=== PATIENT | female | born 1985 | race Caucasian/White ===

== ENCOUNTER → 2018-01-04 09:23 | Outpatient (REF) | payer OTHER, SELFPAY | LOC: LBN 09:23 | PROVIDERS: PCP Family Medicine; Visit Provider Advanced Practice Midwife | DX: Z34.83 Encounter for supervision of other normal pregnancy, third trimester (principal); Z36.85 Encounter for antenatal screening for Streptococcus B | CPT/HCPCS: 87081 ==

== ENCOUNTER → 2018-01-11 10:33 | Outpatient (REF) | payer OTHER, SELFPAY | LOC: LBN 10:33 | PROVIDERS: PCP Family Medicine; Visit Provider Midwife | DX: Z36.85 Encounter for antenatal screening for Streptococcus B (principal); Z34.83 Encounter for supervision of other normal pregnancy, third trimester | CPT/HCPCS: 87081 ==

== ENCOUNTER 2018-02-03 16:45 | Inpatient (IN) | payer OTHER, SELFPAY ==
[2018-02-03 20:12] LABS: HCT 36.9 % (36.0-46.0); HGB 12.7 g/dL (12.0-15.5); Mean Corp. HGB Concentration 34.4 g/dL (32.0-36.0); Mean Corpuscular Hemoglobin 33.1 pg (27.0-33.0); Mean Corpuscular Volume 96.1 fL (80-95); Mean Platelet Volume 11.4 fL (8.0-11.0); Platelet Count 182 x1000/uL (130-400); RBC 3.84 m/cumm (4.00-5.20); RBC Distribution Width 12.4 % (11.7-14.6); White Blood Cell Count 12.35 k/cumm (4.4-10.8)
[2018-02-04 07:02] LABS: HCT 35.6 % (36.0-46.0); HGB 12.2 g/dL (12.0-15.5); Mean Corp. HGB Concentration 34.3 g/dL (32.0-36.0); Mean Corpuscular Hemoglobin 33.1 pg (27.0-33.0); Mean Corpuscular Volume 96.5 fL (80-95); Mean Platelet Volume 11.2 fL (8.0-11.0); Platelet Count 163 x1000/uL (130-400); RBC 3.69 m/cumm (4.00-5.20); RBC Distribution Width 12.5 % (11.7-14.6)
== END 2018-02-04 19:30 | disposition home or self-care (01) | DRG 775 ==
PROVIDERS: Admitting Provider Advanced Practice Midwife; PCP Family Medicine; Visit Provider Advanced Practice Midwife
DX: O48.0 Post-term pregnancy (principal); Z37.0 Single live birth; Z3A.40 40 weeks gestation of pregnancy; O77.0 Labor and delivery complicated by meconium in amniotic fluid
CPT/HCPCS: 36415; 85027; 86850; 86900; 86901

== ENCOUNTER 2021-10-05 14:51 | Outpatient (REF) | payer OTHER, SELFPAY ==
--- NOTE | 2021-10-05 13:30 | PAPFT_PTH ---
PATIENT: Gabrielle Moeller LOC: [facility] U#:[id number] AGE/SX: 36/F ROOM: RE10/05/[address]: Brooke Ames CNM : 1985 BED: DIS: 10/05/2021 SPEC #: [id number] RECD: 10/05/21 17:39 STATUS: LB REQ #: [id number] OLIVER: 10/05/21 13:[address]: Brooke Ames DEPT: [facility] Cytology RECD BY: Morenita Santos ENTERED: 10/05/21 17:40 SP TYPE: PAPFT OTHR DR: Pierce Celaya Tissues: 1 - CX/ENDOCX FOR PAP SMEARS Procedures: PAP THIN PREP/UVM Screening HPV DNA PROBE Comments: [id number] (CHLAMYDIA/GC)
[2021-10-06 15:31] LABS: Chlamydia Result Negative (Negative); GC Result Negative (Negative)
== END 2021-10-05 14:52 | disposition home or self-care (01) ==
LOC: LBN 14:51
PROVIDERS: PCP Family Medicine; Visit Provider Advanced Practice Midwife
DX: Z11.3 Encounter for screening for infections with a predominantly sexual mode of transmission (principal); Z12.4 Encounter for screening for malignant neoplasm of cervix; Z11.51 Encounter for screening for human papillomavirus (HPV)
CPT/HCPCS: 87491; 87591; 88142; 87624

== ENCOUNTER 2022-03-15 03:26 | Outpatient (CLI) | payer BC, SELFPAY ==
[2022-03-15 18:41] LABS: HCG Quant, Pregnancy 619 mIU/mL (1-3)
== END 2022-03-15 03:27 | disposition home or self-care (01) ==
PROVIDERS: PCP Family Medicine
DX: Z32.00 Encounter for pregnancy test, result unknown (principal)
CPT/HCPCS: 36415; 84702; 84703

== ENCOUNTER 2022-03-20 03:25 | Outpatient (CLI) | payer BC, SELFPAY ==
[2022-03-20 17:43] LABS: HCG Quant, Pregnancy 4370 mIU/mL (1-3)
== END 2022-03-20 03:26 | disposition home or self-care (01) ==
DX: Z32.00 Encounter for pregnancy test, result unknown (principal)
CPT/HCPCS: 36415; 84702

== ENCOUNTER 2022-04-28 10:45 | Day surgery (SDC) | payer BC, SELFPAY ==
[2022-04-28 11:16] VITALS: BP 119/76; PULSE 61; RESP 16; TEMP 36.2; O2SAT 98
[2022-04-28 11:18] LABS: HCT 38.2 % (36.0-46.0); HGB 12.9 g/dL (11.2-15.7)
[2022-04-28] MEDS: Doxycycline Hyclate 100 MG CAP 200 MG PO (11:32)
[2022-04-28] MEDS: Acetaminophen 500 MG TAB 1000 MG PO (11:32)
[2022-04-28] MEDS: Ibuprofen 400 MG TAB PO (11:45)
[2022-04-28] MEDS: Lactated Ringers 1,000 ML 125 ML IV (12:00)
--- NOTE | 2022-04-28 12:53 | W.ANESPRE ---
General Info Date of Service Date Performed: 04/28/22 Height: 5 ft 4 in Weight: 66.6 kg Body Mass Index (BMI): 25.2 Surgical Procedure: Operation Date: 04/28/22 12:10 Proposed Procedure Side Surgeon p Suction Completion D&C Amaya Vaca MD Meds Allergies and Home Medications Allergies Allergy/AdvReac Type Severity Reaction Status Date / Time chlorhexadine AdvReac Skin Rash Uncoded 04/28/22 10:05 Home Medication Medication Instructions Recorded multivitamin 1 tab PO DAILY 10/05/21 [id number]-FA 1 mg tab PO 04/28/22 tablet PFSH Active Problems Active Problems: Problem Status Onset Code Encounter for procreative management and counseling for person acting as gestational surrogate Z31.7 resulting from in vitro fertilization O09.819 Missed with demise before 20 completed weeks of gestation O02.1 Medical History Medical History Active labor at term (10/21/14) Appendicitis, unqualified 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 is currently - no alcohol Substance Use Substance use: Never Substance use type: does not use Prental History History 4 Para 4 Hx # Term Pregnancies Multiple births Hx # Pregnancies Ectopic pregnancies AB induced Hx Number of Living Children AB spontaneous Past Pregnancies Del. Date GA/Weeks # Preg Succ Route Wgt Sex Labor Lgth Anesthesia Location Prov Complic 06/25/13 40 No vaginal 3175.147 g Female [facility] 10/22/14 40 No vaginal 3515.341 g Male [facility] 03/07/16 40 No vaginal 3373.593 g Female [facility] 02/03/18 40 No vaginal 3685.438 g Female [facility] Delivery Date: 06/25/13 Last Updated by: Chasity Javier Delivery Date: 10/22/14 Last Updated by: Chasity Mckinnon Delivery Date: 03/07/16 Last Updated by: Chasity Becker Delivery Date: 02/03/18 Last Updated by: Chasity Thurman Vital Signs and Lab Results Vital Signs Most Recent Vital Signs in EMR: Most Recent Vital Signs Temp Pulse Resp BP Pulse Ox 36.2 C L 61 16 119/76 98 04/28/22 11:16 04/28/22 11:16 04/28/22 11:16 04/28/22 11:16 04/28/22 11:16 Lab Results Result Diagrams: 04/28/22 11:13 Blood Type / Crossmatch: Patient ABO/Rh A Positive 04/28/22 Antibody Screen NEGATIVE 04/28/22 Complete Blood Count: Hemoglobin 12.9 g/dL (11.2-15.7) 04/28/22 11:13 Hematocrit 38.2 % (36.0-46.0) 04/28/22 11:13 Complete Metabolic Panel: No Data to Display Liver Function Panel: No Data to Display Coagulation Panel: No Data to Display Cardiac Panel: No Data to Display Arterial Blood Gas: No Data to Display Venous Blood Gas: No Data to Display Pancreas Panel: No Data to Display Thyroid Panel: No Data to Display Infectious Disease: No Data to Display Blood Cultures: No Data to Display Toxicology Panel: No Data to Display Panel: No Data to Display Anesthesia Assessment and Plan Anesthesia History Personal History: No History of Anesthesia Complications Family History: Other Exercise Tolerance Exercise Tolerance: Metabolic Equivalents>4 Pertinent Negatives Pertinent Negatives: No Symptoms of GERD, No Major Cardiovascular Symptoms or Complaints, No Major Pulmonary Symptoms or Complaints and No History of CVA/TIA Cardiac & Pulmonary Exam Cardiac Exam: Normal S1/S2 Heart Sounds Pulmonary Exam: Clear Bilateral Breath Sounds Implantable Cardiac Device Does patient have a Pacemaker or an ICD?: No Airway Exam Known Difficult Airway: No Mallampati Class: 3 Mouth Opening: Normal (> 3cm) Thyromental Distance: Greater than 3 cm Neck Range of Motion: Full ROM Neck Circumference: Normal Teeth Condition: Normal Dentition ASA Classification ASA Score: ASA 2 Emergency Case?: No NPO Status NPO Status: NPO Clears >2 hours, Solids >8 hours Status Status: Positive HCG Anesthesia Plan Resuscitation Status: Full Code Anesthesia Technique: General Anesthesia Airway Planned: Natural Airway Monitors Used: Standard Monitors
[2022-04-28 12:54] VITALS: BMI 25.2
--- NOTE | 2022-04-28 13:30 | POCSPONT_PTH ---
PATIENT: Gabrielle Moeller LOC: [facility] U#:[id number] AGE/SX: 37/F ROOM: RE04/28/[address]: Amaya Vaca MD : 1985 BED: DIS: 04/28/2022 SPEC #: [id number] RECD: 04/28/22 14:09 STATUS: LB REChanell #: [id number] OLIVER: 04/28/22 13:[address]: Amaya Vaca DEPT: Surgical Specimen RECD BY: Morenita Santos Tissues: 1 - ,SPONTANEOUS Procedures: GROSS AND MICRO LEVEL 3 Comments: [id number]
[2022-04-28 13:39] VITALS: BP 100/62; PULSE 69; RESP 16; TEMP 36.5; O2SAT 96
[2022-04-28 14:00] VITALS: BP 102/62; PULSE 67; RESP 16; TEMP 36.8; O2SAT 99
--- NOTE | 2022-04-28 14:28 | ROE_ITS ---
Date of service: 04/28/22 Time of Service: 13:30 Operative Note Operative Note DATE OF PROCEDURE: 04/28/22 PRE-OP DIAGNOSIS: missed POST-OP DIAGNOSIS: same PROCEDURE: Suction dilation and curettage SURGEON: Amaya Vaca Refer to Anesthesia Record COMPLICATIONS: None Patient was transported to: same day Patient's condition: stable Indications: 7wk MAB, originally twin Findings: Small uterus with products of conception evacuated. Minimal bleeding afterwards Procedure Description: After informed consent was signed the patient was taken to the operating room and given General room air anesthesia. SCDs were placed on her legs. She was prepped and draped in the dorsal lithotomy position in the [facility]. A time out was performed. Her bladder was drained of urine. Exam under anesthesia revealed normal external genitalia, vagina normal for age and a normal sized uterus. A speculum was placed into the vagina to reveal the cervix. The anterior lip of the cervix was grasped with a single tooth tenaculum. The cervix was dilated. The patient tolerated it well. The suction device was assembled and turned on. The uterine cavity was gently suctioned to remove the products of conception. There was a gritty texture in all four quadrants of the uterine cavity. There was minimal bleeding and the uterus was noted to be firm. The tenaculum was removed from the cervix with good hemostasis with silver nitrate. The speculum was removed from the vagina. The patient was placed back into the supine position. She was moved to the stretcher and taken to the recovery room in stable condition.
--- NOTE | 2022-04-28 14:28 | W.PM.DSUDISC ---
Date of service: 04/28/22 Time of Service: 13:30 Discharge Plan Disposition Patient Disposition: Home Condition: Good Discharge Details Attending Provider: Amaya Vaca Home Meds and New Rx's Prescriptions: No Action multivitamin Tablet 1 tab PO DAILY 1 mg Tablet PO Discharge Instructions Stand Alone Forms: Anesthesia Discharge Inst., DSU Post D&C Miscarriage, DSU Post BUILD AND RELEASE MANAGER Surgery, Bishnu Roper (DSU) Activity:: Activity as Tolerated Diet:: As Tolerated Discharge Orders Discharge Orders: Discharge Order (Routine); Ordered 04/28/22 Ordered By: Amaya Vaca DS: Diagnosis Discharge Diagnosis (1) Missed with demise before 20 completed weeks of gestation: Status: Acute
--- NOTE | 2022-04-28 15:42 | W.ANESPOSTOP ---
Postoperative Evaluation Date, Time and Location Date Performed: 04/28/22 Time Performed: 15:42 Patient Location: Day Surgery Unit Vital Signs Most Recent Imported Vital Signs: Most Recent Vital Signs Temp Pulse Resp BP Pulse Ox 36.8 C 67 16 102/62 99 04/28/22 14:00 04/28/22 14:00 04/28/22 14:00 04/28/22 14:00 04/28/22 14:00 Pain Score Most Recent Pain Score: Most Recent Pain Score Pain Level 0 04/28/22 13:39 Assessment Mental Status: Awake (Alert & Oriented to Patient Baseline) Airway and Respiratory Function: Patent airway with normal (patient baseline) respiratory exam Cardiovascular Function: Hemodynamically Stable Hydration Status: Adequately Hydrated Nausea & Vomiting: No Nausea or Vomiting Pain: Pt. Denies Any Pain Peripheral Nerve Block: Patient did not receive a nerve block Postoperative Comments:: Ms. Moeller was seen by Pierce Anguiano CRNA prior to discharge s
== END 2022-04-28 14:55 | disposition home or self-care (01) ==
PROVIDERS: Visit Provider Obstetrics & Gynecology
PROC: (CPT 59841; principal; 2022-04-28 12:00)
DX: O02.1 Missed abortion (principal); Z3A.01 Less than 8 weeks gestation of pregnancy; Z33.3 Pregnant state, gestational carrier
CPT/HCPCS: 59820; 36415; 86850; 86900; 86901; 88305; 85014; 85018; 88304; J1100; J2405; J3010

== ENCOUNTER 2022-08-16 01:59 | Outpatient (CLI) | payer BC, SELFPAY ==
[2022-08-16 16:17] LABS: HCG Quant, Pregnancy 493 mIU/mL (1-3)
== END 2022-08-16 02:00 | disposition home or self-care (01) ==
DX: Z32.00 Encounter for pregnancy test, result unknown (principal)
CPT/HCPCS: 36415; 84702

== ENCOUNTER 2022-08-21 03:30 | Outpatient (CLI) | payer BC, SELFPAY ==
[2022-08-21 12:16] LABS: HCG Quant, Pregnancy 5967 mIU/mL (1-3)
== END 2022-08-21 03:31 | disposition home or self-care (01) ==
PROVIDERS: Visit Provider Obstetrics & Gynecology Reproductive Endocrinology
DX: O09.01 Supervision of pregnancy with history of infertility, first trimester (principal); Z3A.00 Weeks of gestation of pregnancy not specified
CPT/HCPCS: 36415; 84702

== ENCOUNTER 2022-10-02 03:04 | Outpatient (CLI) | payer BC, SELFPAY ==
[2022-10-02 16:36] LABS: Abs Immature Grans 0.03 10^3/uL (0.0-0.06); Absolute Basophil Count 0.03 10^3/uL (0.0-0.2); Absolute Eosinophil Count 0.12 10^3/uL (0.0-0.7); Absolute Neutrophil Count 6.96 10^3/uL (1.2-6.7); Basophils % 0.3; Eosinophils % 1.2; HCT 36.9 % (36.0-46.0); HGB 12.7 g/dL (11.2-15.7); Immature Grans % 0.3; Lymphocytes % 22.9; MCH 32.2 pg (27.0-33.0); MCHC 34.4 % (32.0-36.0); MCV 93 fL (80-95); MPV 9.4 fL (8.0-11.0); Neutrophils % 69.3; Platelet Count 277 10^3/uL (130-400); RBC 3.95 10^6/uL (3.93-5.22); RDW 12.1 % (11.7-14.6); RDW-SD 41.7 fL; WBC 10.04 10^3/uL (4.4-10.8)
[2022-10-02 17:45] LABS: TSH (W/Ref FT4) 1.42 uIU/mL (0.36-3.74)
[2022-10-04 09:12] LABS: Hepatitis B Surface Ag Negative (Negative)
[2022-10-04 09:37] LABS: Hepatitis C Ab w Rflx HCV PCR Negative (Negative)
[2022-10-04 10:09] LABS: HIV-1/2 Ag & Ab Screen Negative (Negative)
[2022-10-04 11:23] LABS: Varicella IgG Antibody Positive (See Note)
[2022-10-04 11:26] LABS: Rubella IgG Ab (UVM) Positive (See Note)
[2022-10-04 22:13] LABS: Syphilis IgG w/Reflex Nonreactive (Nonreactive)
== END 2022-10-02 03:05 | disposition home or self-care (01) ==
LOC: LBO 03:04
PROVIDERS: Visit Provider Advanced Practice Midwife
DX: Z34.91 Encounter for supervision of normal pregnancy, unspecified, first trimester (principal); Z3A.10 10 weeks gestation of pregnancy
CPT/HCPCS: 36415; 86787; 86803; 86850; 86900; 86901; 87340; 87389; 84443; 85025; 86762; 86780

== ENCOUNTER 2022-10-02 16:27 | Outpatient (REF) | payer BC, SELFPAY ==
[2022-10-02 17:22] LABS: *AMPHETAMINES SCREEN URINE Negative (Negative); *BARBITURATES SCREEN URINE Negative (Negative); *BENZODIAZEPINES SCREEN URINE Negative (Negative); Cannabinoids THC Negative (Negative); Cocaine Screen,Urine Negative (Negative); METHADONE URINE SCREEN Negative (Negative); OPIATES URINE SCREEN Negative (Negative)
[2022-10-02 17:35] LABS: Tricyclic Antidepressants Negative (Negative)
[2022-10-08 00:25] LABS: Buprenorphine Negative ng/mL (Cutoff: 5.0); Norbuprenorphine Negative ng/mL (Cutoff: 2.5)
== END 2022-10-02 16:28 | disposition home or self-care (01) ==
LOC: LBN 16:27
PROVIDERS: Visit Provider Advanced Practice Midwife
DX: O09.811 Supervision of pregnancy resulting from assisted reproductive technology, first trimester (principal); Z3A.10 10 weeks gestation of pregnancy
CPT/HCPCS: 80307; 80348; 87086

== ENCOUNTER → 2023-01-24 01:51 | Outpatient (CLI) | payer BC, SELFPAY ==
--- NOTE | 2023-01-24 07:45 | DI.US_ITS ---
Exam(s) US OB DILLAN WEIGHT EXAM: US OB DILLAN WEIGHT (TWIN GESTATION) CLINICAL HISTORY: growth,F/U LOW LYING PLACENTA,o44.42. TECHNIQUE: Transabdominal obstetrical ultrasound was performed. COMPARISON: US US OB 2-3 TRIMESTER TWINS from 11/27/2022 FINDINGS: There is viable twin gestation FETUS A: FHR = 144 BPM Amniotic fluid: There is a normal amount of amniotic fluid with an DILLAN of 19.1cm. Placental location: The placenta is posterior grade 1. The distance between the tip of the placenta to the internal cervical os is 1 point 8 cm on today's study. Dating parameters place this station at approximately 28 WEEKS AND 2 DAYS gestational age, implying E DD of 04/16/2023. BPD measures 26 weeks and 5 days HC measures 27 weeks and 3 days AC measures 29 weeks and 0 days FL measures 29 weeks and 5 days Estimated weight is 1302 gm- Fetus A is at the 95th percentile on the Hadlock scale. FETUS B: FHR = 150 BPM Amniotic fluid: There is normal amount of amniotic fluid with DILLAN of 19.4 cm Placenta is posterior grade 1. Distance from tip of placenta to the internal cervical os is 5.8 cm [address] this gestation at approximately 27 weeks and 4 days, implying MELO of 023. BPD measures 27 weeks and 2 days HC measures 27 weeks and 1 day AC measures 27 weeks and 4 days FL measures 28 weeks and 2 days Estimated weight is 1120 grams Fetus is at the 63rd percentile on the Hadlock scale. IMPRESSION:: Viable twin gestation, with details as described above. DATA REPOSITORY:
== END ==
PROVIDERS: Visit Provider Advanced Practice Midwife
DX: O44.42 Low lying placenta NOS or without hemorrhage, second trimester (principal); Z3A.27 27 weeks gestation of pregnancy
CPT/HCPCS: 76816

== ENCOUNTER 2023-01-24 04:04 | Outpatient (CLI) | payer BC, SELFPAY ==
[2023-01-24 09:58] LABS: HCT 31.9 % (36.0-46.0); HGB 10.8 g/dL (11.2-15.7); MCH 32.4 pg (27.0-33.0); MCHC 33.9 % (32.0-36.0); MCV 96 fL (80-95); MPV 10.1 fL (8.0-11.0); Platelet Count 202 10^3/uL (130-400); RBC 3.33 10^6/uL (3.93-5.22); RDW 12.3 % (11.7-14.6); RDW-SD 42.8 fL; WBC 10.63 10^3/uL (4.4-10.8)
[2023-01-24 09:59] LABS: Glucose,1 Hr (Glucola) 125 mg/dL (80-140)
== END 2023-01-24 04:05 | disposition home or self-care (01) ==
LOC: LBO 04:04
PROVIDERS: Visit Provider Advanced Practice Midwife
DX: Z34.92 Encounter for supervision of normal pregnancy, unspecified, second trimester (principal); Z3A.27 27 weeks gestation of pregnancy
CPT/HCPCS: 36415; 82950; 85027

== ENCOUNTER 2023-03-16 16:02 | Outpatient (REF) | payer BC, SELFPAY | END 2023-03-16 16:03 | disposition home or self-care (01) | LOC: LBN 16:02 | PROVIDERS: Visit Provider Obstetrics & Gynecology | DX: Z34.93 Encounter for supervision of normal pregnancy, unspecified, third trimester (principal) | CPT/HCPCS: 87081 ==

== ENCOUNTER 2023-03-23 06:25 | Outpatient (CLI) | payer BC, SELFPAY ==
[2023-03-23 08:58] VITALS: BP 109/69; PULSE 105; TEMP 36.7
[2023-03-23 09:33] VITALS: BP 109/69; PULSE 105
== END 2023-03-23 09:55 ==
LOC: BCD 06:28 → OBS 08:57
PROVIDERS: Visit Provider Obstetrics & Gynecology Gynecology
DX: Z33.3 Pregnant state, gestational carrier (principal); O09.813 Supervision of pregnancy resulting from assisted reproductive technology, third trimester; Z3A.35 35 weeks gestation of pregnancy
CPT/HCPCS: 59025

== ENCOUNTER 2023-03-30 07:32 | Outpatient (CLI) | payer BC, SELFPAY ==
[2023-03-30 08:44] VITALS: TEMP 36.6
--- NOTE | 2023-03-30 09:01 | W.OBNST ---
Date of service: 03/30/23 Time of Service: 09:01 NST Evaluation Reason for NST Reasons for Nonstress Test: MULTIPLE GESTATION Gestational Age Gestational Age in Weeks and Days: 36 Weeks and 3Days Test and Monitor Explained Test/Monitor Explained: Test Explained, Monitor Explained and Patient Verbalized Understanding Vital Signs Temperature: 97.9 F NST Information Date on Monitor: 03/30/23 Time on Monitor: 08:30 NST Interventions: PO Hydration NST Evaluation Patient States Movement: Present FHR Baseline: 140 Variability: Moderate 6-25 bpm Accelerations: 15x15 Decelerations: None NST Results: Reactive NST Evaluation Baby B Patient States Movement: Present FHR Baseline: 130 Variability: Moderate 6-25 bpm Accelerations: 15x15 Decelerations: None NST Results: Reactive Note Ultrasound Done: N/A. NST Note Note: Twin NST, baby A, and be category 1 reactive nonstress test. No significant uterine activity. Follow-up in 1 week. All questions answered. NST Reviewed and Verified by: Batool Clancy
[2023-03-30 09:02] VITALS: TEMP 36.6
== END 2023-03-30 08:55 | disposition home or self-care (01) ==
LOC: BCD 07:36 → OBS 08:43
PROVIDERS: Visit Provider Obstetrics & Gynecology
DX: O09.813 Supervision of pregnancy resulting from assisted reproductive technology, third trimester (principal); Z33.3 Pregnant state, gestational carrier; Z3A.36 36 weeks gestation of pregnancy
CPT/HCPCS: 59025

== ENCOUNTER 2023-04-06 04:42 | Outpatient (CLI) | payer BC, SELFPAY ==
[2023-04-06 11:49] VITALS: BP 115/75; PULSE 98
[2023-04-06 12:09] VITALS: BP 115/75; PULSE 98; TEMP 36.5
--- NOTE | 2023-04-06 12:39 | W.OBNST ---
Date of service: 04/06/23 Time of Service: 12:00 NST Evaluation Reason for NST Reasons for Nonstress Test: MULTIPLE GESTATION Gestational Age Gestational Age in Weeks and Days: 37 Weeks and 3Days Test and Monitor Explained Test/Monitor Explained: Test Explained, Monitor Explained and Patient Verbalized Understanding Vital Signs Blood Pressure: 115/75 Pulse: 98 Temperature: 97.7 F Urine Results Urine Protein: Negative Urine Ketones: Positive Urine Glucose: Negative Urine Blood: Negative NST Information Date on Monitor: 04/06/23 Time on Monitor: 11:42 Date off Monitor: 04/06/23 Time off Monitor: 12:05 Total Time on Monitor: 23 NST Interventions: PO Hydration NST Evaluation Patient States Movement: Present FHR Baseline: 135 Variability: Moderate 6-25 bpm Accelerations: 15x15 Decelerations: None NST Results: Reactive NST Evaluation Baby B Patient States Movement: Present FHR Baseline: 125 Variability: Moderate 6-25 bpm Accelerations: 15x15 Decelerations: None NST Results: Reactive Note Ultrasound Done: N/A. NST Note Note: see record NST Reviewed and Verified by: Amaya Vaca
[2023-04-06 12:41] VITALS: BP 115/75; PULSE 98; TEMP 36.5
== END 2023-04-06 12:35 | disposition home or self-care (01) ==
LOC: BCD 04:45 → OBS 11:48
PROVIDERS: Visit Provider Obstetrics & Gynecology Gynecology
DX: O09.813 Supervision of pregnancy resulting from assisted reproductive technology, third trimester (principal); Z33.3 Pregnant state, gestational carrier; Z3A.37 37 weeks gestation of pregnancy
CPT/HCPCS: 59025

== ENCOUNTER 2023-04-10 03:20 | Outpatient (CLI) | payer BC, SELFPAY ==
[2023-04-10 14:29] LABS: HCT 35.7 % (36.0-46.0); HGB 12.2 g/dL (11.2-15.7); MCH 31.9 pg (27.0-33.0); MCHC 34.2 % (32.0-36.0); MCV 94 fL (80-95); MPV 11.1 fL (8.0-11.0); Platelet Count 181 10^3/uL (130-400); RBC 3.82 10^6/uL (3.93-5.22); RDW 13.2 % (11.7-14.6); RDW-SD 45.1 fL; WBC 9.94 10^3/uL (4.4-10.8)
== END 2023-04-10 03:21 | disposition home or self-care (01) ==
LOC: LBO 03:20
PROVIDERS: Visit Provider Obstetrics & Gynecology Gynecology
DX: Z01.818 Encounter for other preprocedural examination (principal)
CPT/HCPCS: 36415; 85027; 86850; 86900; 86901

== ENCOUNTER 2023-04-11 09:05 | Inpatient (IN) | payer BC, SELFPAY ==
--- NOTE | 2023-04-10 17:35 | W.ANESPRE ---
General Info Date of Service Date Performed: 04/11/23 Height: 5 ft 4 in Weight: 88 kg Body Mass Index (BMI): 33.3 Surgical Procedure: Operation Date: 04/11/23 07:40 Proposed Procedure Side Surgeon p Elective Primary Section Yari Lopez MD Meds Allergies and Home Medications Allergies Allergy/AdvReac Type Severity Reaction Status Date / Time chlorhexadine AdvReac Skin Rash Uncoded 04/10/23 13:10 Home Medication Medication Instructions Recorded aspirin 81 mg tablet,delayed 81 mg PO DAILY #90 tabs 10/02/22 release cholecalciferol (vitamin D3) 25 25 mcg PO DAILY 10/02/22 mcg (1,000 unit) tablet prenat.vits,yifan,klq-ywzm-rgiek 1 tab PO DAILY 10/19/22 ferrous sulfate 140 mg (45 mg 140 mg PO DAILY 02/05/23 iron) tablet,extended release PFSH Active Problems Active Problems: Problem Status Onset Code Discordant growth in twin gestation O30.009, O36.5990 Low lying placenta nos or without hemorrhage, second trimester O44.42 state, gestational carrier Z33.3 Dichorionic diamniotic twin O30.049 Twin gestation in first trimester O30.001 Subchorionic hematoma in first trimester O41.8X10, O46.8X1 conceived through in vitro fertilization O09.819 Z34.90 Medical History Medical History (Updated 04/10/23 @ 19:33 by Yari Lopez MD) History of miscarriage Medical History Comments:: younger sister had PONV Surgical History Surgical History (Updated 04/28/22 @ 14:49 by Amaya Vaca MD) H/O dilation and curettage 04/28/22 7wk MAB twins wisdom teeth extraction Appendectomy (08/22/16) laparoscopic Tobacco Smoking/Tobacco Use Status: Never Alcohol Alcohol Intake: former Details: pt. is currently - no alcohol Substance Use Substance use: Never Substance use type: does not use Prental History History 6 Para 4 Hx # Term Pregnancies 4 Multiple births 0 Hx # Pregnancies 0 Ectopic pregnancies 0 AB induced 0 Hx Number of Living Children 4 AB spontaneous 1 Past Pregnancies Del. Date GA/Weeks # Preg Succ Route Wgt Sex Labor Lgth Anesthesia Location Prov Complic 06/25/13 40 No vaginal 3175.147 g Female [facility] 10/22/14 40 No vaginal 3515.341 g Male [facility] 03/07/16 40 No vaginal 3373.593 g Female [facility] 02/03/18 40 No vaginal 3685.438 g Female [facility] Delivery Date: 06/25/13 Last Updated by: Chasity Javier Delivery Date: 10/22/14 Last Updated by: Chasity Mckinnon Delivery Date: 03/07/16 Last Updated by: Chasity Moy Delivery Date: 02/03/18 Last Updated by: Chasity Thurman Vital Signs and Lab Results Vital Signs Most Recent Vital Signs in EMR: Temp Pulse Resp BP Pulse Ox 36.8 C 111 H 20 109/74 97 04/11/23 06:55 04/11/23 06:58 04/11/23 06:55 04/11/23 06:55 04/11/23 06:55 Lab Results Blood Type / Crossmatch: Patient ABO/Rh A Positive 04/10/23 Antibody Screen NEGATIVE 04/10/23 Complete Blood Count: White Blood Count 9.94 10^3/uL (4.4-10.8) 04/10/23 13:55 Red Blood Count 3.82 10^6/uL (3.93-5.22) L 04/10/23 13:55 Hemoglobin 12.2 g/dL (11.2-15.7) 04/10/23 13:55 Hematocrit 35.7 % (36.0-46.0) L 04/10/23 13:55 Platelet Count 181 10^3/uL (130-400) 04/10/23 13:55 Complete Metabolic Panel: No Data to Display Liver Function Panel: No Data to Display Coagulation Panel: No Data to Display Cardiac Panel: No Data to Display Arterial Blood Gas: No Data to Display Venous Blood Gas: No Data to Display Pancreas Panel: No Data to Display Thyroid Panel: No Data to Display Infectious Disease: No Data to Display Blood Cultures: No Data to Display Toxicology Panel: No Data to Display Panel: No Data to Display Anesthesia Assessment and Plan Anesthesia History Personal History: No History of Anesthesia Complications Family History: Other Exercise Tolerance Exercise Tolerance: Metabolic Equivalents>4 Cardiac & Pulmonary Exam Cardiac Exam: Normal S1/S2 Heart Sounds Pulmonary Exam: Clear Bilateral Breath Sounds Implantable Cardiac Device Does patient have a Pacemaker or an ICD?: No Airway Exam Known Difficult Airway: No Mallampati Class: 3 Mouth Opening: Normal (> 3cm) Thyromental Distance: Greater than 3 cm Neck Range of Motion: Full ROM Neck Circumference: Normal Teeth Condition: Normal Dentition ASA Classification ASA Score: ASA 2 Emergency Case?: No NPO Status NPO Status: NPO Clears >2 hours, Solids >8 hours Status Status: Confirmed Anesthesia Plan Resuscitation Status: Full Code Anesthesia Technique: Spinal Anesthesia Airway Planned: Natural Airway Pain Management: Intrathecal Analgesia Monitors Used: Standard Monitors Preoperative Comments:: 38 yo female with a chlorhexidine allergy, surrogate with di-di twins for c section. Has had recent rib pain which has been causing her much discomfort. She is not opposed to sedation/anxiolysis during her section (this was discussed with her at length on 03/16/23 and she understands the amnesia that can/will occur. Sig PMHx: no major. No HTN, no asthma. Previous Anes: - d/c, Prop, fent, natural airway, no issues. - lap taty hernadez 2 grade 1, easy mask, no issues. Plan for spinal with IT opioid, +/- 2nd IV, would like anxiolysis.
[2023-04-11] VITALS (158 sets, daily range): BP systolic 95–118; BP diastolic 55–82; PULSE 54–111; RESP 12–20; TEMP 34.9–36.8; O2SAT 97–100; BMI 33.3
[2023-04-11] MEDS: Lactated Ringers 1,000 ML 125 ML IV (06:41)
[2023-04-11] MEDS: AZITHROMYCIN 500 MG in Normal Saline 250 ML 250 MG IVPB (06:43)
[2023-04-11] MEDS: Lactated Ringers 1,000 ML 30 ML IV ×2 (07:47→08:44)
[2023-04-11] MEDS: ceFAZolin 2 GM/50 ML BAG IV (08:00)
[2023-04-11 08:13] LABS: COVID-19 PCR Negative (Negative); Source Nasal/Nares
[2023-04-11] MEDS: Bupivacaine 0.25% Pres-Free 30 ML VIAL (08:45)
--- NOTE | 2023-04-11 09:20 | W.ANESPOSTOP ---
Postoperative Evaluation Date, Time and Location Date Performed: 04/11/23 Time Performed: 09:20 Patient Location: Obstetrics Vital Signs Most Recent Imported Vital Signs: Most Recent Vital Signs Temp Pulse Resp BP Pulse Ox 36.8 C 89 20 101/58 L 98 04/11/23 06:55 04/11/23 09:18 04/11/23 06:55 04/11/23 09:08 04/11/23 09:18 Pain Score Most Recent Pain Score: Most Recent Pain Score Pain Level 0 04/11/23 06:55 Assessment Mental Status: Awake (Alert & Oriented to Patient Baseline) Airway and Respiratory Function: Patent airway with normal (patient baseline) respiratory exam Cardiovascular Function: Hemodynamically Stable Hydration Status: Adequately Hydrated Nausea & Vomiting: No Nausea or Vomiting Pain: Other (spinal still in effect. ) Peripheral Nerve Block: Patient did not receive a nerve block
[2023-04-11] MEDS: Ketorolac 30 MG/ML VIAL IVP ×2 (14:09→20:07)
[2023-04-11] MEDS: Normal Saline Flush 10 ML SYR IVP ×2 (14:10→20:07)
[2023-04-11] MEDS: Docusate Sodium 100 MG CAP PO (20:07)
--- NOTE | 2023-04-11 23:04 | W.PM.OBPNV1 ---
Date of service: 04/11/23 Time of Service: 23:04 Assessment and Plan Assessment and plan (1) Hx of section: Status: Acute Assessment and plan: POD 0. Serous sanguinous drainage from Pfannenstiel skin incision. No active bleeding noted when dressing removed. New dressing applied. Will continue to observe drainage. Subjective Subjective Interval history: POD 0 pLTCS twin gestation @38w1d EGA. Pt had 3cm of R lateral margin staining on dressing over Pfannestiel skin incision at 15:00 today. Abd soft and non-tender, FF@U/1. No pain. RN caring for pt this evening reported that dressing was now completely stained with blood. None running from below Mepilex dressing. I came to inspect incision. Patient comments: No complaints, Pain well controlled and Tolerating diet; no Incisional pain [place] baby status: Other (Infants rooming with biological fathers.) [place] feeding status: Exclusively formula feeding Exam Physical Exam Vital signs: Temp Pulse Resp BP Pulse Ox 97.5 F L 63 17 118/74 99 04/11/23 20:23 04/11/23 20:23 04/11/23 21:00 04/11/23 20:23 04/11/23 20:23 Vital Signs Reviewed: Yes Constitutional Constitutional: no acute distress Respiratory Exam Respiratory Exam: Normal Cardiovascular Exam Cardiovascular Exam: Normal (pulse sinus rhythm ) Abdominal Exam Comments: Soft non-tender. No distention. Mepilex dressing removed and incision inspected. Steri strips in place over R lateral margin of incision are moist with serrous sanguinous drainage. No active bleeding/drainage from incision line when abd pressure applied along incision. No hematoma or incision induration. Fundal Exam Fundus: Below Umbilicus and Firm Rectal Exam Rectal Exam: Not Done Extremities Exam Extremity Exam: Normal Back/Spine/Pelvis Exam Back Exam: Not Done Skin Exam Skin Exam: Normal Neurological Exam Neurological Exam: Normal Psychiatric Exam Psychiatric Exam: Normal
[2023-04-12] VITALS (8 sets, daily range): BP systolic 119–122; BP diastolic 75–82; PULSE 64–70; RESP 14–17; TEMP 36.4; O2SAT 100
[2023-04-12] MEDS: Ketorolac 30 MG/ML VIAL IVP (03:45)
[2023-04-12] MEDS: Normal Saline Flush 10 ML SYR IVP (03:58)
[2023-04-12 07:21] LABS: Abs Immature Grans 0.12 10^3/uL (0.0-0.06); Absolute Eosinophil Count 0.03 10^3/uL (0.0-0.7); Absolute Lymphocyte Count 2.84 10^3/uL (1.2-3.4); Absolute Monocyte Count 0.97 10^3/uL (0.1-0.8); Basophils % 0.2; Eosinophils % 0.2; HCT 30.7 % (36.0-46.0); HGB 10.2 g/dL (11.2-15.7); Immature Grans % 0.7; Lymphocytes % 17.3; MCH 31.1 pg (27.0-33.0); MCHC 33.2 % (32.0-36.0); MCV 94 fL (80-95); MPV 10.8 fL (8.0-11.0); Monocytes % 5.9; Neutrophils % 75.7; Platelet Count 176 10^3/uL (130-400); RBC 3.28 10^6/uL (3.93-5.22); RDW-SD 44.6 fL; WBC 16.42 10^3/uL (4.4-10.8)
[2023-04-12 07:37] LABS: Absolute Basophil Count 0.03 10^3/uL (0.0-0.2); Absolute Neutrophil Count 12.43 10^3/uL (1.2-6.7)
[2023-04-12] MEDS: Docusate Sodium 100 MG CAP PO (08:10)
--- NOTE | 2023-04-12 08:22 | W.PM.OBDISCH ---
Date of service: 04/12/23 Time of Service: 08:23 DS: Diagnosis Discharge Diagnosis (1) Hx of section: Status: Acute (2) Dichorionic diamniotic twin : Status: Acute (3) state, gestational carrier: Status: Acute Discharge Plan Disposition Patient Disposition: Home Condition: Good Discharge Details Reason For Visit: Primary Low Transverse Delivery Admit Date/Time: 04/11/23 09:05 Admit Provider: Yari Lopez Attending Provider: Yari Lopez Primary Care Provider: Unknown,Unknown Hospital Course Hospital Course: Patient was admitted the morning of surgery and underwent a primary low transverse delivery for twin gestation. Patient is a gestational carrier. The infants remain with their biologic father's. Surgery was uncomplicated she was discharged home on postop day #1 voiding successfully her pain was well controlled with NSAIDs she was tolerating a regular diet. There was serosanguineous drainage on her postop Mepilex dressing. It was removed incision was inspected and was within normal limits and another dressing was reapplied. Patient was given instructions regarding removing and applying another dressing. She declined any narcotics for home use. She will follow-up in approximately 1 week for incision check Home Meds and New Rx's Prescriptions: No Action cholecalciferol (vitamin D3) 25 mcg (1,000 unit) tablet 25 mcg PO DAILY aspirin 81 mg tablet,delayed release (DR/EC) 81 mg PO DAILY Qty: 90 4RF Rx Instructions: 1 tab daily alternating with 2 tabs every other day, starting at 12 wks ferrous sulfate 140 mg (45 mg iron) tablet extended release 140 mg PO DAILY prenat.vits,yifan,mbb-xkcv-brywy Tablet 1 tab PO DAILY Discharge Instructions Stand Alone Forms: BC Discharge Instruc Activity:: Activity as Tolerated Equipment/Supplies:: No Equipment Needed Diet:: As Tolerated Discharge Orders Discharge Orders: Discharge Order (Routine); Ordered 04/12/23 Ordered By: Yari Lopez Discharge Data Discharge Date/Time-TO BE ENTERED AT DEPARTURE: 04/12/23 08:30 Discharge Comment: return to [facility] in a week for incision check OB:DS Summary Summary Delivery Method: Primary Episiotomy Description: None Laceration Description: None Laceration Extension: N/A complications OB DS: none Contraception Discussed Contraception Discussed: No, Infant Gender-Baby A: Female weight: 6 lb 5.765 oz Disposition of Baby A: Home Infant Gender-Baby B: Female Weight-Baby B: 6 lb 14.407 oz Disposition of Baby B: Home Status at Discharge Functional status at discharge: independent ambulation Overall status at discharge: patient is progressing back to baseline Mental Status: mental status grossly normal Speech and Movement: speech and movement normal Mood: congruent mood Affect: normal affect Time Spent with Patient providing and/or coordinating discharge services: Less than 30 minutes Exam Physical Exam Vital signs: Temp Pulse Resp BP Pulse Ox 97.5 F L 68 16 120/75 100 04/12/23 04:03 04/12/23 04:03 04/12/23 04:03 04/12/23 04:03 04/12/23 04:03 Vital Signs Reviewed: Yes Constitutional Constitutional: no acute distress HEENT Exam HEENT Exam: Normal Respiratory Exam Respiratory Exam: Normal Cardiovascular Exam Cardiovascular Exam: Normal Abdominal Exam Abdomen: Tender (mildly) Comments: Mepilex dressing removed after it became saturated with serosanguineous drainage. Pfannenstiel skin incision remains dry intact Steris in place. No ecchymosis no induration Fundal Exam Fundus: Below Umbilicus and Firm Rectal Exam Rectal Exam: Not Done Extremities Exam Extremity Exam: Not Done Back/Spine/Pelvis Exam Back Exam: Normal Skin Exam Skin Exam: Normal Neurological Exam Neurological Exam: Normal Psychiatric Exam Psychiatric Exam: Normal PFSH All Active Problems (Updated 04/11/23 @ 23:22 by Yari Lopez MD) Hx of section (Acute) 04/11/23 for twin gestation. state, gestational carrier (Acute) Dichorionic diamniotic twin (Acute) conceived through in vitro fertilization (Acute) (Acute) Medical History (Updated 04/11/23 @ 23:22 by Yari Lopez MD) History of miscarriage Surgical History (Updated 04/11/23 @ 23:22 by Yari Lopez MD) H/O dilation and curettage 04/28/22 7wk MAB twins wisdom teeth extraction Appendectomy (08/22/16) laparoscopic Family History Mother No problems noted. Father No problems noted. Sister No problems noted. Sister No problems noted. Sister No problems noted. Brother No problems noted. Brother No problems noted. Brother No problems noted. Son No problems noted. Daughter No problems noted. Social History (Updated 04/10/23 @ 18:05 by Yari Lopez MD) Smoking/Tobacco Use Status: Never Smoking risk assessment performed?: Yes Alcohol Intake: former Details: pt. is currently - no alcohol Drug use: Never Substance use type: does not use Adopted: No Foster care: No Household members: spouse and other Details: H-Brian, Brother-Sean, CARINA-John. 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 Working smoke detector in home: Yes Fire extinguisher in home: Yes Carbon monox detector in home: Yes Firearms in home: Yes Do you feel safe at home: Yes Do you feel safe in your relationship?: Yes Victim of physical abuse: No Victim of emotional abuse: No Victim of sexual abuse: No Female Reproductive History Menstrual Age of Menarche: 15 Duration of menses: 8-10 days control method: permanent sterilization History History 6 Para 4 Hx # Term Pregnancies 4 Multiple births 01 Hx # Pregnancies 0 Ectopic pregnancies 0 AB induced 0 Hx Number of Living Children 6 AB spontaneous 1 Past Pregnancies Del. Date GA/Weeks # Preg Succ Route Wgt Sex Labor Lgth Anesthesia Location Prov Complic 06/25/13 40 No vaginal 7 lb Female [facility] 10/22/14 40 No vaginal 7 lb [address] [facility] 03/07/16 40 No vaginal 7 lb 7 oz Female [facility] 02/03/18 40 No vaginal 8 lb [address] [facility] 04/11/23 38 Yes Yes: Di-Di twins. gestational carrier. aoc/kj Delivery Date: 06/25/13 Last Updated by: Chasity Javier Delivery Date: 10/22/14 Last Updated by: Chasity Mckinnon Delivery Date: 03/07/16 Last Updated by: Chasity Becker Delivery Date: 02/03/18 Last Updated by: Chasity Thurman DS: Data Vitals/I&O Vitals and I&O: Vital Signs Temperature 97.5 F L 04/12/23 04:03 Temperature Source Oral 04/12/23 04:03 Pulse 68 04/12/23 04:03 Pulse Rhythm Regular 04/11/23 20:00 Respiratory Rate 16 04/12/23 04:03 Respiratory Depth Normal 04/11/23 20:00 Blood Pressure 120/75 04/12/23 04:03 Blood Pressure Mean 90 04/12/23 04:03 Pulse Oximetry 100 04/12/23 04:03 Oxygen Delivery Method Room Air 04/11/23 06:55 Oxygen Flow Rate 0 04/11/23 06:55 Pain Level 4 04/12/23 04:00 Intake & Output 04/11/23 04/11/23 04/12/23 11:59 23:59 11:59 Intake Total 2150 / 3250 1100 / 3250 Output Total 1000 / 3600 2600 / 3600 Balance 1150 / -350 -1500 / -350 Weight 194 lb 0.108 oz Intake: IV 1700 / 1700 Oral 450 / 1550 1100 / 1550 Output: Urine 100 / 2700 2600 / 2700 Estimated Blood Loss 900 / 900 Other: Urine Color Pale Pale Urine Appearance Clear Clear Urine Odor None Comment To the floor at this time after Voiding Methods Toilet Data Completed and Pending Labs on day of discharge: Labs from last 24 hours 04/12/23 07:08 WBC 16.42 H RBC 3.28 L Hgb 10.2 L D Hct 30.7 L MCV 94 MCH 31.1 MCHC 33.2 RDW 13.0 Plt Count 176 MPV 10.8 Immature Gran % 0.7 Neutrophils % 75.7 Lymphocytes % 17.3 Monocytes % 5.9 Eosinophils % 0.2 Basophils % 0.2 Nucleated RBC % 0.0 Absolute Neutrophils 12.43 H Absolute Lymphocytes 2.84 Absolute Monocytes 0.97 H Absolute Eosinophils 0.03 Absolute Basophils 0.03
--- NOTE | 2023-04-15 19:04 | PDOC.OPNB_ITS ---
Date of service: 04/11/23 Time of Service: 19:06 Operative Note Operative Note Delivery Method: Scheduled and Primary [id number]>37 Weeks: Yes DATE OF PROCEDURE: 04/11/23 PRE-OP DIAGNOSES: Elective schedule primary delivery Adolph twins POST-OP DIAGNOSES: same gestational carrier. IVF conception PROCEDURE: primary low transverse delivery SURGEON: Yari Lopez Assisting Surgeon: Batool Clancy Anesthesia: spinal Estimated blood loss (mL): 900 Patient was transported to: floor Patient's condition: stable Indications: 38yo female currently 38w0d EGA with Di-Di- twins, surrogate carrier, eggs donated, IVF conception. In her 3rd trimester she developed rib and chest discomfort which influenced her decision to to undergo a vaginal delivery of twin gestation. Patient was unsure that she could push effectively with contractions secondary to her rib and chest pain. She requested a primary low transverse delivery Findings: Viable female infants. Two amniotic sacs. Twin A: Vertex. Twin B: Transverse. Normal uterus, fallopian tubes and ovaries. Procedure Description: Patient was taken to the operating room she is placed in the sitting position and spinal anesthesia was administered without difficulty. She was then placed in the dorsal supine position with a leftward tilt. SCDs and a Granados catheter to gravity drainage were in place. A vaginal prep with Betadine was performed and the patient was prepped and draped in the usual sterile fashion. Surgical timeout was performed. Preop antibiotics were administered. After a adequate level of anesthesia was achieved a Pfannenstiel skin incision was made approximately 2 cm superior to the pubic symphysis using a scalpel and the underlying subcutaneous tissue dissected using Bovie electrocautery to the level of the rectus fascia. The rectus fascia was then nicked in the midline and the fascial incision extended laterally using Bovie electrocautery. 2 Malcolm clamps were applied to the superior rectus fascia and the rectus fascia was dissected off of the underlying rectus muscles using Bovie electrocautery and blunt technique. A similar technique was carried out on the inferior rectus fascia. Rectus muscles were then in the midline and the peritoneum entered bluntly. The peritoneal incision was extended laterally using blunt technique. The vesicle-uterine peritoneum over lower uterine segment was incised with curved Laguna scissors and the bladder flap created bluntly. Scalpel was used to incise the lower uterine segment in a transverse fashion. The uterine incision was extended bluntly and the presenting amniotic sac was r uptured with clear amniotic fluid noted. A single gloved hand was placed into the uterine cavity and the head was successfully delivered through the uterine incision followed by the trunk and extremities with the assistance of fundal pressure. The cord was doubly clamped and cut and the handed off to the waiting pediatric team. The second amniotic sac was ruptured and the infant was noted to be in the transverse position back up and feet to maternal left. Both lower extremities were grasped at the ankles and the infant was delivered using the Bracht maneuver. The umbilical cord was doubly clamped and cut and the handed off to the pediatric team. Cord blood was collected and the placenta was extracted with a combination of fundal massage and gentle cord traction. The uterus was exteriorized cleared of all clots and debris and the uterine incision reapproximated with a running lock suture of 0 Vicryl followed by a second imbricating suture of 0 Vicryl. Uterine incision was noted be hemostatic. The uterus was returned to the abdomen and the paracolic gutters cleared of all clots and debris. Uterine incision and the along with the bladder flap and the abdominal wall were all inspected and noted to be hemostatic. The rectus fascia was reapproximated with a running suture of 0 Vicryl. space within the subcutaneous tissue closed with a running suture of 2-0 Vicryl. The skin incision was reapproximated with a subcuticular closure of 4-0 Vicryl. Steri strips and a Mepilex dressing was applied. The uterus was massaged for any remaining clots and debris. The patient was transported to recovery area in stable condition. All sponge, lap, and needle counts correct x2. Gestational Age in Weeks/Days: 38 Weeks and 1 Days Infant Gender: Female weight: 6 lb 5.765 oz Gender-Baby B: Female Weight-Baby B: 6 lb 14.407 oz
== END 2023-04-12 08:30 | disposition home or self-care (01) | DRG 788 ==
LOC: OBS 10:25 → NUR 10:27 → OBS 10:37
PROVIDERS: Admitting Provider Obstetrics & Gynecology Gynecology; Visit Provider Obstetrics & Gynecology Gynecology
PROC: 10D00Z1 Extraction of Products of Conception, Low, Open Approach (ICD-10-PCS; CPT 59514; principal; 2023-04-11 07:30)
DX: O30.043 Twin pregnancy, dichorionic/diamniotic, third trimester (principal); Z33.3 Pregnant state, gestational carrier; Z37.2 Twins, both liveborn; Z3A.38 38 weeks gestation of pregnancy
CPT/HCPCS: 59514; 36415; 87635; 85025; J0131; J0456; J0690; J1100; J1885; J2250; J2371; J2405; J3010

== ENCOUNTER 2023-06-11 16:00 | Outpatient (REF) | payer BC, SELFPAY | END 2023-06-11 16:01 | disposition home or self-care (01) | LOC: LBN 16:00 | PROVIDERS: PCP Obstetrics & Gynecology Gynecology; Visit Provider Obstetrics & Gynecology Gynecology | DX: R30.0 Dysuria (principal) | CPT/HCPCS: 87077; 87086; 87186 ==

== ENCOUNTER 2024-08-13 12:14 | Outpatient (CLI) | payer BC, SELFPAY ==
[2024-08-13 12:25] LABS: Calculated LDL 97 mg/dL (<100); Cholesterol 169 mg/dL (<200); HDL Cholesterol 66 mg/dL (>or=50); Triglyceride 32 mg/dL (<150)
== END 2024-08-13 12:15 | disposition home or self-care (01) ==
LOC: LBO 12:15
PROVIDERS: PCP Obstetrics & Gynecology Gynecology; Visit Provider Family Medicine
DX: N80.C19 Endometriosis of the anterior abdominal wall, unspecified depth (principal)
CPT/HCPCS: 36415; 80061

== ENCOUNTER 2025-03-10 00:19 | Outpatient (CLI) | payer BC, SELFPAY ==
--- NOTE | 2025-03-10 | DI.MAMMO_ITS ---
Exam(s) MAMMO SCREENING EXAM: MAMMO SCREENING CLINICAL HISTORY: SCREENING, Z12.31 TECHNIQUE: Bilateral full field digital CC and MLO mammographic images were obtained with 3D tomosynthesis and utilizing computer aided detection (CAD). COMPARISON: This is a baseline examination. There are no priors for comparison. FINDINGS: Masses/Architectural Distortion: No suspicious masses or areas of architectural distortion are present. Microcalcifications: No suspicious pleomorphic-type are seen. Skin Thickening/Nipple Retraction: None. IMPRESSION: 1. There is no evidence for malignancy seen at this time. 2. Unless there is more urgent need, screening mammography is recommended, as per [employer] guidelines. BI-RADS Category 1 - Negative Breast Density - Category C - The breast are heterogeneously dense, which may obscure small masses. Breast density Category C or D implies that the patient has dense breast tissue. Dense breast tissue can make it harder to find cancer on a mammogram. Dense breast tissue is also associated with an increased risk of breast cancer. This information about the result of the mammogram report was provided to the patient to raise their awareness. Use this report when you speak with the patient about their risks for breast cancer, which includes their family history. At that time, you may recommend additional screening tests (Ultrasound or MRI) as these tests may add significant information. A negative radiographic report should not delay biopsy if a dominant or clinically suspicious mass is present. Up to ten percent of cancers are not identified on mammography. A negative report may reinforce clinical impression. Adenosis and dense breasts may obscure an underlying neoplasm. False positive reports average 6 to 10%. Patient will receive a letter notifying them of these results.
== END 2025-03-10 00:39 ==
LOC: DI 00:19
PROVIDERS: PCP Obstetrics & Gynecology Gynecology; Visit Provider Family Medicine
DX: Z12.31 Encounter for screening mammogram for malignant neoplasm of breast (principal)
CPT/HCPCS: 77063; 77067